=== PATIENT | female | born 1985 | race Caucasian/White ===

== ENCOUNTER 2016-11-13 10:03 | Outpatient (RCR) | payer MEDICAID | END 2016-12-04 | LOC: M OUTALCOH 10:03 | PROVIDERS: ATTEND Psychiatry & Neurology Psychiatry | DX: F11.20 Opioid dependence, uncomplicated (principal); F15.20 Other stimulant dependence, uncomplicated ==

== ENCOUNTER → 2017-02-12 | Outpatient (CLI) | payer MEDICAID | LOC: M OUTALCOH 09:05 | PROVIDERS: ATTEND Psychiatry & Neurology Psychiatry | DX: F11.20 Opioid dependence, uncomplicated (principal); F15.20 Other stimulant dependence, uncomplicated; F14.20 Cocaine dependence, uncomplicated ==

== ENCOUNTER 2017-09-26 11:35 | Emergency (ER) | payer MEDICAID, OTHER ==
[~2017-09-26] VITALS: Ht 175.3 cm; Wt 61.4 kg
[2017-09-26] MEDS ORDERED: PRENTAB55 PO (11:39)
[2017-09-26 12:18] LABS: BASO # 0.1 10^3/uL (0.0-0.2); BASO % 0.5 % (0.0-1.0); EOS # 0.1 10^3/uL (0.0-0.50); EOS % 0.8 % (0.0-3.0); IMMATURE GRANULOCYTE % 0.3 % (0-0); LYMPH # 2.9 10^3/uL (1.5-4.5); LYMPH % 23.2 % (24.0-44.0); MEAN CORPUSCULAR HEMOGLOBIN 31.9 pg (27.0-33.0); MEAN CORPUSCULAR HGB CONC 34.3 g/dl (32.0-36.5); MONO # 0.8 10^3/uL (0.0-0.8); MONO % 6.1 % (0.0-5.0); NEUTROPHILS # 8.5 10^3/uL (1.8-7.7); NEUTROPHILS % 69.1 % (36.0-66.0); PLATELET COUNT, AUTOMATED 246 10^3/uL (150-450); RED CELL DISTRIBUTION WIDTH 12.1 % (11.5-14.5); WHITE BLOOD COUNT 12.3 10^3/uL (4.0-10.0)
--- NOTE | 2017-09-26 13:21 | REP ---
Clinical: Vaginal bleeding. Positive . Technique: Transabdominal and transvaginal first trimester obstetrical ultrasound with color Doppler evaluation. Findings: Anteverted uterus measures 8.7 x 4.7 x 5.6 cm. Hemorrhagic debris distends the endometrial canal to 12 mm and no intrauterine is identified. Maternal ovaries are normal in appearance and vascularity. Right ovary measures 4.0 x 2.2 x 3.0 cm; RI 0.46. Left ovary measures 1.9 x 1.9 x 1.6 cm; RI 0.59. Trace pelvic free fluid is nonspecific. Impression: Hemorrhagic debris within the endometrial canal and no evidence for intrauterine . Differential diagnosis includes miscarriage/spontaneous and early . Ectopic cannot be excluded. Correlation with serial HCG levels recommended. Signed by Steffen Puckett MD 09/26/2017 01:12 P
[2017-09-26] MEDS ORDERED: RHOGAM 300 MCG (1500 IU) INJ (J2790) IM SCH (13:45)
[2017-09-26 14:47] VITALS: BP 136/85
== END 2017-09-26 14:51 | disposition home or self-care (01) ==
LOC: M ED 11:35
DX: O03.4 Incomplete spontaneous abortion without complication (principal)
CPT/HCPCS: 76801; 76817; 81001; 84702; 85025; 86850; 86900; 86901; 87210; 87491; 87591; 93976; 96372; 99283; J2790

== ENCOUNTER 2019-01-12 16:11 | Emergency (ER) | payer MEDICAID, OTHER, SELFPAY ==
[~2019-01-12] VITALS: Ht 172.7 cm; Wt 65.9 kg
[2019-01-12 16:11] VITALS: BP 127/58
[~2019-01-12 16:11] MED LIST: PRENTAB55 PO
[2019-01-12 20:03] LABS: BASO % 0.4 % (0.0-1.0); BLOOD UREA NITROGEN 8 MG/DL (7-18); CALCIUM LEVEL 7.4 MG/DL (8.5-10.1); CARBON DIOXIDE LEVEL 24 MEQ/L (21-32); CHLORIDE LEVEL 107 MEQ/L (98-107); CREATININE FOR GFR 0.53 MG/DL (0.55-1.30); EOS # 0.1 10^3/uL (0.0-0.50); EOS % 1.4 % (0.0-3.0); GLOMERULAR FILTRATION RATE > 60.0 (>60); GLUCOSE, FASTING 114 MG/DL (70-100); HEMATOCRIT 32.3 % (36.0-47.0); HEMOGLOBIN 11.5 g/dl (12.0-15.5); LYMPH # 1.5 10^3/uL (1.5-4.5); LYMPH % 21.5 % (24.0-44.0); MEAN CORPUSCULAR HEMOGLOBIN 33.9 pg (27.0-33.0); MEAN CORPUSCULAR HGB CONC 35.6 g/dl (32.0-36.5); MEAN CORPUSCULAR VOLUME 95.3 fl (80.0-96.0); MONO # 0.5 10^3/uL (0.0-0.8); MONO % 7.3 % (0.0-5.0); NEUTROPHILS # 4.9 10^3/uL (1.8-7.7); PLATELET COUNT, AUTOMATED 290 10^3/uL (150-450); RED BLOOD COUNT 3.39 10^6/uL (4.00-5.40); SODIUM LEVEL 139 MEQ/L (136-145); WHITE BLOOD COUNT 7.1 10^3/uL (4.0-10.0)
[2019-01-12 20:07] LABS: AMPHETAMINES LEVEL URINE NEGATIVE (NEGATIVE); BARBITURATES URINE NEGATIVE (NEGATIVE); BENZODIAZEPINES URINE NEGATIVE (NEGATIVE); CANNABINOIDS URINE NEGATIVE (NEGATIVE); COCAINE METABOLITE URINE POSITIVE (NEGATIVE); METHADONE URINE NEGATIVE (NEGATIVE); OPIATES URINE POSITIVE (NEGATIVE); PHENCYCLIDINE URINE NEGATIVE (NEGATIVE)
[2019-01-12] MEDS ORDERED: KEFL500C17 PO (22:43)
--- NOTE | 2019-01-13 09:45 | REP ---
Obstetric ultrasound for vaginal bleeding, emergency room request: There is a single intrauterine gestation in a vertex presentation. There is movement and cardiac activity. The heart rate is 155 beats minute. The placenta is anterior without previa or abruptio and is grade zero maturity. Subjectively the amniotic fluid volume is normal. The cervix is 3.9 cm length. Gestational age by today's ultrasound is 21 weeks 5 days/LAWANDA 05/20/2019. Gestational age by LMP is 21 weeks 5 days/LAWANDA 05/20/2019. weight is for and 20 grams/0 pounds, 14 ounces. This is the 36th percentile for 21 weeks 5 days. The following anatomic structures are identified and are unremarkable: Intracranial lateral ventricles, choroid plexus, cerebellum, as cisterna magna, facial profile, upper lip, face, lungs, four-chamber heart, cardiac right and left ventricular outflow tracts, diaphragm, stomach, cord insertion, three-vessel cord, kidneys, bladder, spine and upper lower extremities. There are no anomalies. Impression: No anomalies. No placental abruptio. Normal anatomy. Electronically Signed by Hubert Christie MD 01/13/2019 09:37 A
== END 2019-01-12 23:00 | disposition home or self-care (01) ==
LOC: M ED 16:11
DX: O99.322 Drug use complicating pregnancy, second trimester (principal); F19.10 Other psychoactive substance abuse, uncomplicated; O23.42 Unspecified infection of urinary tract in pregnancy, second trimester; O09.32 Supervision of pregnancy with insufficient antenatal care, second trimester; Z3A.21 21 weeks gestation of pregnancy; Z87.440 Personal history of urinary (tract) infections

== ENCOUNTER → 2019-01-16 | Outpatient (REF) | payer OTHER ==
[~2019-01-16] MED LIST changes: +KEFL500C17 PO
[2019-01-16 14:12] LABS: HEMATOCRIT 34.9 % (36.0-47.0); HEMOGLOBIN 12.3 g/dl (12.0-15.5); MEAN CORPUSCULAR HEMOGLOBIN 32.9 pg (27.0-33.0); MEAN CORPUSCULAR HGB CONC 35.2 g/dl (32.0-36.5); MEAN CORPUSCULAR VOLUME 93.3 fl (80.0-96.0); PLATELET COUNT, AUTOMATED 316 10^3/uL (150-450); RED BLOOD COUNT 3.74 10^6/uL (4.00-5.40); WHITE BLOOD COUNT 14.2 10^3/uL (4.0-10.0)
[2019-01-16 15:05] LABS: HIV 1&2 SCREEN CENTAUR NEGATIVE (NEGATIVE); RUBELLA IgG QUALITATIVE IMMUNE (IMMUNE)
== END ==
LOC: M LAB REF 12:34
PROVIDERS: ATTEND Nurse Practitioner Women's Health
DX: Z34.82 Encounter for supervision of other normal pregnancy, second trimester (principal); Z36.89 Encounter for other specified antenatal screening

== ENCOUNTER → 2019-01-27 | Outpatient (REF) | payer OTHER | LOC: M LAB REF 17:13 | PROVIDERS: ATTEND Nurse Practitioner Women's Health | DX: Z34.82 Encounter for supervision of other normal pregnancy, second trimester (principal); Z3A.00 Weeks of gestation of pregnancy not specified ==

== ENCOUNTER → 2019-02-11 | Outpatient (CLI) | payer MEDICAID | LOC: M OUTALCOH 15:30 | PROVIDERS: ATTEND Psychiatry & Neurology Psychiatry | DX: Z13.9 Encounter for screening, unspecified (principal) ==

== ENCOUNTER → 2019-02-17 | Outpatient (CLI) | payer OTHER ==
[2019-02-17 13:48] LABS: HEMATOCRIT 37.2 % (36.0-47.0); HEMOGLOBIN 12.8 g/dl (12.0-15.5); MEAN CORPUSCULAR HEMOGLOBIN 33.4 pg (27.0-33.0); MEAN CORPUSCULAR HGB CONC 34.4 g/dl (32.0-36.5); MEAN CORPUSCULAR VOLUME 97.1 fl (80.0-96.0); PLATELET COUNT, AUTOMATED 239 10^3/uL (150-450); RED BLOOD COUNT 3.83 10^6/uL (4.00-5.40); WHITE BLOOD COUNT 9.9 10^3/uL (4.0-10.0)
== END ==
LOC: M LAB 11:26
PROVIDERS: ATTEND Obstetrics & Gynecology
DX: Z34.83 Encounter for supervision of other normal pregnancy, third trimester (principal); Z3A.00 Weeks of gestation of pregnancy not specified

== ENCOUNTER 2019-03-02 14:41 | Outpatient (RCR) | payer MEDICAID | END 2019-03-03 | LOC: M OUTALCOH 14:41 | PROVIDERS: ATTEND Psychiatry & Neurology Psychiatry | DX: F11.20 Opioid dependence, uncomplicated (principal); F14.10 Cocaine abuse, uncomplicated ==

== ENCOUNTER 2019-03-13 08:47 | Outpatient (CLI) | payer MEDICAID, OTHER ==
[~2019-03-13] VITALS: Ht 172.7 cm; Wt 73.0 kg
[2019-03-13] VITALS (7 sets, daily range): BP systolic 130–141; BP diastolic 60–83
--- NOTE | 2019-03-13 09:50 | IPNPDOC ---
Text Note Date of Service The patient was seen on 03/13/19. NOTE 33yo LAWANDA 05/18/19. Pt of [facility]. Presents @ 30w5d with complaints of bleeding while on wipe. Denies regular UC, LOF. States good activity. Denies recent IC. Pt reports hx LEEP without TVUS this . Hx significant for recent drug use. Currently on suboxone x 1-2 weeks. UDS 01/12/19 + cocaine. Pt reports using hydrocodone as recently as last week. Cat I tracing, no UC on monitor SSE cervix visually LTC, parous. No blood in vault or on swab with touch Sono ordered to r/o abruption, cervical length Coag labs ordered UDS discussed with pt and sent. Reevaluate after results. A-FIB/CHADSVASC A-FIB History Current/History of A-Fib/PAF?: No Current Oral Anticoagulant The: No VS,Fishbone, I+O VS, Fishbone, I+O Vital Signs Date Time Temp Pulse Resp B/P (MAP) Pulse Ox O2 Delivery O2 Flow Rate FiO2 03/13/19 08:58 93 20 136/83 (100) Haley Liang CNM March 13, 2019 09:50
[2019-03-13 09:58] LABS: APPEARANCE, URINE CLEAR (CLEAR); BACTERIA, URINE AUTO 1+ (NEGATIVE); BILIRUBIN, URINE AUTO NEGATIVE (NEGATIVE); BLOOD, URINE BLOOD 1+ (NEGATIVE); COLOR, URINE STRAW (YELLOW); GLUCOSE, URINE (UA) AUTO NEGATIVE (NEGATIVE); KETONE, URINE AUTO NEGATIVE (NEGATIVE); LEUKOCYTE ESTERASE, URINE AUTO NEGATIVE (NEGATIVE); NITRITE, URINE AUTO NEGATIVE (NEGATIVE); PROTEIN, URINE AUTO NEGATIVE (NEGATIVE); RBC, URINE AUTO 0 /HPF (0-3); SPECIFIC GRAVITY URINE AUTO 1.002 (1.002-1.035); SQUAMOUS EPITHELIAL CELL UR AU 0 /HPF (0-6); UROBILINOGEN, URINE AUTO 0.2 mg/dL (0.0-2.0); WBC, URINE AUTO 1 /HPF (0-3)
[2019-03-13 10:02] LABS: HEMATOCRIT 36.7 % (36.0-47.0); HEMOGLOBIN 12.7 g/dl (12.0-15.5); MEAN CORPUSCULAR HEMOGLOBIN 32.5 pg (27.0-33.0); MEAN CORPUSCULAR HGB CONC 34.6 g/dl (32.0-36.5); MEAN CORPUSCULAR VOLUME 93.9 fl (80.0-96.0); PLATELET COUNT, AUTOMATED 244 10^3/uL (150-450); RED BLOOD COUNT 3.91 10^6/uL (4.00-5.40); WHITE BLOOD COUNT 10.2 10^3/uL (4.0-10.0)
[2019-03-13 10:13] LABS: INR 0.83; PROTHROMBIN TIME 11.5 SECONDS (12.1-14.4)
[2019-03-13 10:14] LABS: PARTIAL THROMBOPLASTIN TIME 25.2 SECONDS (25.4-37.6)
[2019-03-13 10:15] LABS: AMPHETAMINES URINE REFLEX NEGATIVE (NEGATIVE); BARBITURATES URINE REFLEX NEGATIVE (NEGATIVE); BENZODIAZEPINES URINE REFLEX NEGATIVE (NEGATIVE); CANNABINOIDS URINE REFLEX NEGATIVE (NEGATIVE); COCAINE METABOLITE URINE REFLE NEGATIVE (NEGATIVE); METHADONE URINE REFLEX NEGATIVE (NEGATIVE); OPIATES URINE REFLEX NEGATIVE (NEGATIVE); PHENCYCLIDINE URINE REFLEX NEGATIVE (NEGATIVE)
--- NOTE | 2019-03-13 12:35 | REP ---
OB ULTRASOUND: Real-time sonographic evaluation of the gravid uterus is performed utilizing transabdominal and endovaginal technique. There is a single living intrauterine gestation. Estimated gestational age 30 weeks 2 days, EDC 05/20/2019. Today's measurements indicate appropriate growth. BPD 82 mm = 32 weeks 6 days, 87th percentile HC 296 mm = 32 weeks 5 days, 86th percentile AC 273 mm = 31 weeks 3 days, 66th percentile Femur length 54 mm = 28 weeks 4 days, 14th percentile HC/AC ratio 1.08 within normal range. Estimated weight 1638 grams, 52nd percentile. Cervix measured transvaginally measures 4.1 cm in length. heart rate 149 beats per minute. Amniotic fluid within normal limits, LEANNA 15.3 within normal range of 8.9-23.5. S/D ratio 2.57 and RI 0.61 within normal range. SEEN/GROSSLY UNREMARKABLE Lateral ventricles No Posterior fossa Yes Upper lip No Four-chamber heart Yes LVOT Yes RVOT Yes Stomach Yes Cord insertion Yes Three vessel cord Yes Kidneys Yes Bladder Yes Spine Yes position: Vertex. Placenta: Anterior and grade 1 with no previa or abruption. Electronically Signed by Hubert Lee MD 03/18/2019 11:40 A
--- NOTE | 2019-03-13 12:41 | IPNPDOC ---
Text Note Date of Service The patient was seen on 03/13/19. NOTE CAt 1 tracing continues No UC TVUS shows cervix 4.1cm, closed No evidence previa or abruption Coags WNL, KB 0.000 Will obtain preeclamptic panel prior to discharge due to borderline readings Keep appt on saturday. A-FIB/CHADSVASC A-FIB History Current/History of A-Fib/PAF?: No Current Oral Anticoagulant The: No VS,Fishbone, I+O VS, Fishbone, I+O Laboratory Tests 03/13/19 09:50 Red Blood Count 3.91 L, Mean Corpuscular Volume 93.9, Mean Corpuscular Hemoglobin 32.5, Mean Corpuscular Hemoglobin Concent 34.6, Red Cell Distribution Width 12.2 Vital Signs Date Time Temp Pulse Resp B/P (MAP) Pulse Ox O2 Delivery O2 Flow Rate FiO2 03/13/19 11:32 88 18 139/75 (96) 03/13/19 09:12 97.6 Haley Liang CNM March 13, 2019 12:41
[2019-03-13 13:38] LABS: CREATININE,RANDOM URINE < 13.0 MG/DL; TOTAL PROTEIN,RANDOM URINE < 5.0 MG/DL (0.0-12.0)
[2019-03-13 14:21] LABS: ALT/SGPT 16 U/L (12-78); BILIRUBIN,TOTAL 0.2 MG/DL (0.2-1.0); CREATININE FOR GFR 0.49 MG/DL (0.55-1.30); GLOMERULAR FILTRATION RATE > 60.0 (>60); LDH LACTATE DEHYDROGENASE 223 U/L (84-246); URIC ACID 4.3 MG/DL (2.6-6.0)
--- NOTE | 2019-03-13 16:02 | IPNPDOC ---
Text Note Date of Service The patient was seen on 03/13/19. NOTE Second speculum exam performed after pt demonstrated pink tinted toilet paper after voiding. No blood in vault or on swab. Cat I tracing, no UC Renal scan WNL Will consult physician for further recommendations. A-FIB/CHADSVASC A-FIB History Current/History of A-Fib/PAF?: No Current Oral Anticoagulant The: No VS,Fishbone, I+O VS, Fishbone, I+O Laboratory Tests 03/13/19 09:50 Red Blood Count 3.91 L, Mean Corpuscular Volume 93.9, Mean Corpuscular Hemoglobin 32.5, Mean Corpuscular Hemoglobin Concent 34.6, Red Cell Distribution Width 12.2 03/13/19 13:31 Aspartate Amino Transf (AST/SGOT) 20, Alanine Aminotransferase (ALT/SGPT) 16, Lactate Dehydrogenase 223, Total Bilirubin 0.2, Uric Acid 4.3 Vital Signs Date Time Temp Pulse Resp B/P (MAP) Pulse Ox O2 Delivery O2 Flow Rate FiO2 03/13/19 14:55 88 18 133/65 (87) 03/13/19 09:12 97.6 Haley Liang CNM March 13, 2019 16:02
--- NOTE | 2019-03-13 16:30 | REP ---
HISTORY: Hematuria. COMPARISON: There are no priors for comparison. FINDINGS: Multiple ultrasonographic images of the right kidney show the right kidney to measure 13.6 x 6.5 x 5.6 cm. The renal cortical echotexture is unremarkable. There are no masses. There is good corticomedullary differentiation. There is no hydronephrosis. There are no perinephric fluid collections. Multiple ultrasonographic images of the left kidney show the left kidney to measure 13.4 x 5.4 x 5.9 cm. The renal cortical echotexture is unremarkable. There are no masses. There is good corticomedullary differentiation. There is no hydronephrosis. There are no perinephric fluid collections. 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 IMPRESSION: Unremarkable renal ultrasonography. Electronically Signed by Erwin Mcgrath DO 03/19/2019 02:36 P
--- NOTE | 2019-03-13 19:11 | IPNPDOC ---
Text Note Date of Service The patient was seen on 03/13/19. NOTE Reviewed labs, sonogram, pt status with Dr Vernon Pt verbalized concerns about discharge tonight and "it getting worse." Will continue to observe overnight and reevaluate in the morning and prn. Pt verbalized reassurance. A-FIB/CHADSVASC A-FIB History Current/History of A-Fib/PAF?: No Current Oral Anticoagulant The: No VS,Fishbone, I+O VS, Fishbone, I+O Laboratory Tests 03/13/19 09:50 Red Blood Count 3.91 L, Mean Corpuscular Volume 93.9, Mean Corpuscular Hemog lobin 32.5, Mean Corpuscular Hemoglobin Concent 34.6, Red Cell Distribution Width 12.2 03/13/19 13:31 Aspartate Amino Transf (AST/SGOT) 20, Alanine Aminotransferase (ALT/SGPT) 16, Lactate Dehydrogenase 223, Total Bilirubin 0.2, Uric Acid 4.3 Vital Signs Date Time Temp Pulse Resp B/P (MAP) Pulse Ox O2 Delivery O2 Flow Rate FiO2 03/13/19 14:55 88 18 133/65 (87) 03/13/19 09:12 97.6 Haley Liang CNM March 13, 2019 19:11
[2019-03-14 01:15] VITALS: BP 116/68
[2019-03-14 06:42] VITALS: BP 132/79
--- NOTE | 2019-03-14 07:56 | IPNPDOC ---
Text Note Date of Service The patient was seen on 03/14/19. NOTE Pt has slept through the night. Denies further spotting or bleeding No abdominal discomfort or contractions Fetus is active Discharged home. Routine precautions If bleeding becomes heavier than on a wipe or passing clots of pain, please call Keep appt with Reyna on Saturday. A-FIB/CHADSVASC A-FIB History Current/History of A-Fib/PAF?: No Current Oral Anticoagulant The: No VS,Fishbone, I+O VS, Fishbone, I+O Laboratory Tests 03/13/19 09:50 Red Blood Count 3.91 L, Mean Corpuscular Volume 93.9, Mean Corpuscular Hemoglobin 32.5, Mean Corpuscular Hemoglobin Concent 34.6, Red Cell Distribution Width 12.2 03/13/19 13:31 Aspartate Amino Transf (AST/SGOT) 20, Alanine Aminotransferase (ALT/SGPT) 16, Lactate Dehydrogenase 223, Total Bilirubin 0.2, Uric Acid 4.3 Vital Signs Date Time Temp Pulse Resp B/P (MAP) Pulse Ox O2 Delivery O2 Flow Rate FiO2 03/14/19 06:42 97.9 77 132/79 (96) 03/13/19 14:55 18 Haley Liang CNM March 14, 2019 07:56
== END 2019-03-14 08:00 | disposition home or self-care (01) ==
LOC: M LDO 08:47
PROVIDERS: ATTEND Advanced Practice Midwife
DX: O26.853 Spotting complicating pregnancy, third trimester (principal); Z3A.30 30 weeks gestation of pregnancy

== ENCOUNTER 2019-04-01 07:55 | Outpatient (RCR) | payer MEDICAID | END 2019-04-03 | LOC: M OUTALCOH 07:55 | PROVIDERS: ATTEND Psychiatry & Neurology Psychiatry | DX: F11.20 Opioid dependence, uncomplicated (principal); F14.10 Cocaine abuse, uncomplicated ==

== ENCOUNTER → 2019-04-14 | Outpatient (REF) | payer MEDICAID | LOC: M LAB REF 12:22 | PROVIDERS: ATTEND Nurse Practitioner Women's Health | DX: O09.93 Supervision of high risk pregnancy, unspecified, third trimester (principal); Z3A.00 Weeks of gestation of pregnancy not specified; F11.19 Opioid abuse with unspecified opioid-induced disorder ==

== ENCOUNTER → 2019-04-21 | Outpatient (REF) | payer MEDICAID ==
[~2019-04-21] MED LIST changes: +SUBO8MIS SL
== END ==
LOC: M LAB REF 16:47
PROVIDERS: ATTEND Nurse Practitioner Women's Health
DX: O09.93 Supervision of high risk pregnancy, unspecified, third trimester (principal)

== ENCOUNTER 2019-04-24 08:11 | Outpatient (CLI) | payer MEDICAID, OTHER ==
[~2019-04-24] VITALS: Ht 172.7 cm; Wt 79.7 kg
[~2019-04-24 08:11] MED LIST changes: -SUBO8MIS SL
[2019-04-24 08:31] VITALS: BP 130/71
[2019-04-24] MEDS ORDERED: SUBO8MIS SL (08:59)
== END 2019-04-24 09:15 | disposition home or self-care (01) ==
LOC: M LDO 08:11
PROVIDERS: ATTEND Obstetrics & Gynecology
DX: O47.1 False labor at or after 37 completed weeks of gestation (principal); Z3A.37 37 weeks gestation of pregnancy

== ENCOUNTER → 2019-04-28 | Outpatient (REF) | payer OTHER ==
[~2019-04-28] MED LIST changes: +SUBO8MIS SL
== END ==
LOC: M LAB REF 17:07
PROVIDERS: ATTEND Nurse Practitioner Women's Health
DX: O99.323 Drug use complicating pregnancy, third trimester (principal); O09.93 Supervision of high risk pregnancy, unspecified, third trimester; Z3A.00 Weeks of gestation of pregnancy not specified

== ENCOUNTER 2019-05-01 08:45 | Outpatient (RCR) | payer MEDICAID | END 2019-05-03 | LOC: M OUTALCOH 08:45 | PROVIDERS: ATTEND Psychiatry & Neurology Psychiatry | DX: F11.20 Opioid dependence, uncomplicated (principal); F14.10 Cocaine abuse, uncomplicated ==

== ENCOUNTER 2019-05-08 08:45 | Outpatient (RCR) | payer MEDICAID ==
[2019-05-13] MEDS ORDERED: IBUP80TA PO (05:54)
== END 2019-06-03 ==
LOC: M OUTALCOH 08:45
PROVIDERS: ATTEND Psychiatry & Neurology Psychiatry
DX: F11.20 Opioid dependence, uncomplicated (principal); F14.10 Cocaine abuse, uncomplicated

== ENCOUNTER 2019-05-10 17:40 | Inpatient (IN) | payer MEDICAID, OTHER ==
[~2019-05-10] VITALS: Ht 172.7 cm; Wt 84.3 kg
[2019-05-10] VITALS (13 sets, daily range): BP systolic 108–143; BP diastolic 59–75
[2019-05-10] MEDS: LR 1,000 ML IV SCH (20:22)
[2019-05-10] MEDS ORDERED: PENICILLIN G POTASSIUM IV 5 MU in D5W MINI-BAG PLUS 100 ML IV STA (20:24)
[2019-05-10] MEDS ORDERED: OXYTOCIN DRIP 30 UNITS in APPROPRIATE DILUENT 1 EA IV SCH (20:30)
[2019-05-10 20:41] LABS: HEMATOCRIT 37.6 % (36.0-47.0); HEMOGLOBIN 13.2 g/dl (12.0-15.5); MEAN CORPUSCULAR HGB CONC 35.1 g/dl (32.0-36.5); PLATELET COUNT, AUTOMATED 226 10^3/uL (150-450); WHITE BLOOD COUNT 10.1 10^3/uL (4.0-10.0)
--- NOTE | 2019-05-10 21:09 | HPE ---
DATE OF ADMISSION: 05/10/2019 HISTORY: 33-year-old, 4, para 1 female at 38-6/7 weeks gestation by ultrasound with an estimated date of confinement (EDC) of 05/18/2019, presents with regular contractions every 4-5 minutes. Throughout the day the contractions increased in intensity. There is no vaginal bleeding, no leaking of fluid. The patient gets care through [facility]. COURSE: The patient's initial care was in [place], [place]. She transferred back to [place] at 26 weeks gestation, on 02/10/2019. Her early blood pressure was 110/62. The patient has a history of multidrug abuse and started on Suboxone 8 mg daily at 29 weeks. She had a positive drug screen during for opioids and cocaine. The patient had an ultrasound at 35 weeks on 04/23/2019 where there was suspicion for poor growth of both femurs and humeri. Cause of abnormal growth unknown. Overall measurements of the fetus was at 30th percentile for gestational age. OBSTETRICAL HISTORY: 1. 2003: 40 week vaginal delivery, female infant, no complications. 2. 2016: Miscarriage. 3. 2016: Miscarriage. MEDICAL HISTORY: 1. History of multidrug abuse. SURGICAL HISTORY: None. ALLERGIES: No known drug allergies. MEDICATIONS: - vitamins - Suboxone 8 mg daily PHYSICAL EXAMINATION: Blood pressure 132/71, pulse 68, afebrile. She appears mildly uncomfortable. Head and neck exam is normal. Lungs are clear. Heart: Regular rate and rhythm. Abdomen is nontender, gravid. heart tones category 1. Also on heart tones there was a 5 minute deceleration associated with a contraction down to the 70s. Sterile vaginal exam: 1-2 cm, 50%, -2, posterior, vertex, soft. Extremities: Nontender. LABORATORY DATA: Blood type O negative, Rubella immune, RPR nonreactive, hepatitis B negative, hepatitis C confirmatory testing negative. Group B streptococcus (GBS) positive. ASSESSMENT: 33-year-old, 4, para 1 female at 38-6/7 weeks gestation by ultrasound presents in early labor with concerning heart rate deceleration. PLAN: Keep for augmentation of labor. Do not want to risk sending the patient home with a possible compromise as determined by heart rate testing. Patient received group B Streptococcus (GBS) prophylaxis with penicillin.
[2019-05-10 22:41] LABS: AMPHETAMINES LEVEL URINE NEGATIVE (NEGATIVE); BARBITURATES URINE NEGATIVE (NEGATIVE); BENZODIAZEPINES URINE NEGATIVE (NEGATIVE); CANNABINOIDS URINE NEGATIVE (NEGATIVE); COCAINE METABOLITE URINE NEGATIVE (NEGATIVE); METHADONE URINE NEGATIVE (NEGATIVE); OPIATES URINE NEGATIVE (NEGATIVE); PHENCYCLIDINE URINE NEGATIVE (NEGATIVE)
[2019-05-11] VITALS (60 sets, daily range): BP systolic 96–144; BP diastolic 50–83
[2019-05-11] MEDS: PENICILLIN G POTASSIUM IV 2.5 MU in APPROPRIATE DILUENT 1 EA IV SCH ×5 (00:30→16:41)
[2019-05-11] MEDS: LR 1,000 ML IV SCH (14:47)
[2019-05-11] MEDS ORDERED: FENTANYL 2MCG/ML ROPIVACAINE 0.2% IN 0.9% NACL 100ML IVBAG As Ordered ONE (15:00)
[2019-05-11] MEDS ORDERED: REFRIGERATOR IV KEYS XX PRN (15:25)
[2019-05-11] MEDS ORDERED: EPIDURAL/PCA KEYS XX PRN (15:25)
[2019-05-11] MEDS ORDERED: ONDANSETRON 4MG/2ML VIAL (J2405) IV PRN ×3 (15:25→18:45)
[2019-05-11] MEDS ORDERED: FENTANYL/ROPIVACAINE/NACL BAG 100 ML EPIDURAL SCH (15:25)
[2019-05-11] MEDS ORDERED: ePHEDrine SULFATE 25 MG/5 ML(5MG/ML) SYRINGE IV PRN (15:25)
[2019-05-11] MEDS ORDERED: NALOXONE INJ 0.4 MG/1 ML VIAL (J2310) IV PRN (15:25)
[2019-05-11] MEDS ORDERED: diphenhydrAMINE INJ 50MG/ML VIAL (J1200) IV PRN (15:25)
[2019-05-11] MEDS ORDERED: EPIDURAL COMMENT XX SCH (15:25)
[2019-05-11] MEDS ORDERED: ceFAZolin 2 GM/D5W 50 ML IV BAG (J0690 PER 500MG) As Ordered ONE (16:59)
[2019-05-11] MEDS ORDERED: BICITRA 30ML SOLN UDC As Ordered ONE (16:59)
[2019-05-11] MEDS ORDERED: BICITRA 30ML SOLN UDC PO ONE (17:15)
[2019-05-11] MEDS ORDERED: ONDANSETRON 4MG/2ML VIAL (J2405) As Ordered ONE (18:13)
[2019-05-11] MEDS ORDERED: KETOROLAC 60 MG/2 ML VIAL (J1885) As Ordered ONE (18:13)
[2019-05-11] MEDS ORDERED: MORPHINE PRES-FREE INJ 10 MG/10 ML VIAL (J2274) As Ordered ONE (18:13)
[2019-05-11] MEDS ORDERED: OXYTOCIN INJ 10 UNITS/ML VIAL (J2590) As Ordered ONE (18:13)
[2019-05-11] MEDS ORDERED: ACETAMINOPHEN 1000MG 100ML IV BTL (OFIRMEV) (J0131 PER 10MG) As Ordered ONE ×2 (18:15→18:19)
[2019-05-11] MEDS ORDERED: OXYTOCIN DRIP 30 UNITS in APPROPRIATE DILUENT 1 EA IV SCH (18:17)
[2019-05-11 18:41] LABS: CORD GAS ABE V -2.8; CORD GAS HCO3 V 23.5 MEQ/L; CORD GAS O2 SAT V 35.9 %; CORD GAS PCO2 V 46.3 mmHg; CORD GAS PH V 7.323 UNITS; CORD GAS PO2 V 17.4 mmHg; CORD GAS SBC V 20.7 MEQ/L; CORD GAS TCO2 V 24.9 MEQ/L
[2019-05-11 18:45] LABS: CORD GAS HCO3 A 23.9 MEQ/L; CORD GAS O2 SAT A 39.7 %; CORD GAS PCO2 A 50.2 mmHg; CORD GAS PH A 7.296 UNITS; CORD GAS PO2 A 19.4 mmHg; CORD GAS SBC A 20.6 MEQ/L; CORD GAS TCO2 A 25.5 MEQ/L
[2019-05-11] MEDS ORDERED: LR 1,000 ML IV SCH (18:45)
[2019-05-11] MEDS ORDERED: fentaNYL 100 MCG/2 ML INJECTION (J3010) IV PRN (18:45)
[2019-05-11] MEDS ORDERED: MORPHINE 10 MG/ML 1ML VIAL (J2270) IV PRN (18:45)
[2019-05-11] MEDS ORDERED: NALBUPHINE HCL 10 MG/ML AMP (J2300) IV PRN (18:45)
[2019-05-11] MEDS ORDERED: RHOGAM 300 MCG (1500 IU) INJ (J2790) IM SCH (19:00)
[2019-05-11] MEDS ORDERED: MOM 30ML SUSPENSION UDC PO PRN (19:00)
[2019-05-11] MEDS ORDERED: METHYLERGONOVINE MALEATE 0.2 MG TAB PO PRN (19:00)
[2019-05-11] MEDS ORDERED: MEASLES,MUMPS,RUBELLA VACCINE INJ (MMR-II) (90707) SC SCH (19:00)
[2019-05-11] MEDS: DOCUSATE SODIUM 100 MG CAP PO SCH (21:00)
--- NOTE | 2019-05-11 22:01 | RO ---
DATE OF PROCEDURE: 05/11/2019 Ingrid is a 33-year-old female 2, para 1-0-0-1 who was admitted at 39 weeks gestation with two spontaneous decelerations, in early labor. She was augmented with Pitocin and continued to have a nonreassuring heart rate tracing, had a 4-5 minutes deceleration. She was remote from delivery. After extensive counseling, a decision was made to proceed with a primary section. PREOPERATIVE DIAGNOSES: 1. Term . 2. Nonreassuring heart rate tracing, remote from delivery. POSTOPERATIVE DIAGNOSES: 1. Term . 2. Nonreassuring heart rate tracing, remote from delivery. PROCEDURE: Primary low transverse section. SURGEON: Levy Orellana DO ASTRONOMY PROFESSOR: Sadaf Beasley CNM ANESTHESIA: Epidural. COMPLICATIONS: None. ESTIMATED BLOOD LOSS: 500 mL. FINDINGS: Live male in occiput posterior position. score 8 and 9. weight 7 pounds 7 ounces. Normal appearing tubes and ovaries. DESCRIPTION OF PROCEDURE: After obtaining informed consent, the patient was taken to the operating room where epidural anesthetic was found be adequate. She was draped and prepped in the usual sterile fashion in the supine position. At this point, a Pfannenstiel incision was made with a fresh knife. This was carried down to the fascia. Fascia was incised in midline fashion and carried through laterally. With the help of my research lab assistant, the peritoneal cavity was then entered, a Mobius skin retractor was placed, a low transverse uterine incision was made. was delivered in an atraumatic fashion. Nose and mouth bulb suctioned. Cord doubly clamped and cut, and the infant was handed over to awaiting warmer. Cord blood and cord gas were sent. Placenta removed manually. Uterus cleared of all clot and debris and uterine incision was repaired in two separate layers of #0 Vicryl sutures. All superficial bleeders were coagulated. Pelvis copiously irrigated with normal saline and suctioned out. Attention turned to the peritoneum, which was closed in a running fashion using #2-0 Vicryl. Fascia closed in two separate segments of #0 Vicryl sutures. All superficial bleeders coagulated, and the skin was reapproximated in subcuticular fashion using #3-0 Vicryl on a Dirk. An abdominal dressing was placed. The patient was then transferred to recovery room in stable condition.
[2019-05-11] MEDS: KETOROLAC 30 MG/ML VIAL (J1885) IV SCH (23:48)
[2019-05-12 02:00] VITALS: BP 115/57
[2019-05-12 06:00] VITALS: BP 119/58
[2019-05-12] MEDS: KETOROLAC 30 MG/ML VIAL (J1885) IV SCH ×2 (06:01→12:12)
[2019-05-12 06:37] LABS: HEMATOCRIT 32.4 % (36.0-47.0); HEMOGLOBIN 11.3 g/dl (12.0-15.5); MEAN CORPUSCULAR HEMOGLOBIN 33.4 pg (27.0-33.0); MEAN CORPUSCULAR HGB CONC 34.9 g/dl (32.0-36.5); MEAN CORPUSCULAR VOLUME 95.9 fl (80.0-96.0); PLATELET COUNT, AUTOMATED 176 10^3/uL (150-450); RED BLOOD COUNT 3.38 10^6/uL (4.00-5.40); WHITE BLOOD COUNT 9.6 10^3/uL (4.0-10.0)
[2019-05-12] MEDS: PRENATAL VITAMINS CHEWABLE TABLET PO SCH (09:11)
[2019-05-12] MEDS: DOCUSATE SODIUM 100 MG CAP PO SCH ×2 (09:11→20:31)
[2019-05-12] MEDS: BUPRENORPHINE/NALOXONE 8-2MG SUBLINGUAL TABLET(SUBOXONE) SL SCH (09:11)
[2019-05-12 10:00] VITALS: BP 117/60
[2019-05-12 14:07] VITALS: BP 137/66
[2019-05-12 18:00] VITALS: BP 101/53
[2019-05-12] MEDS: ACETAMINOPHEN 500 MG TAB PO PRN (18:57)
[2019-05-12] MEDS: IBUPROFEN 800 MG TAB PO SCH (20:31)
[2019-05-12 22:00] VITALS: BP 113/58
[2019-05-13 02:00] VITALS: BP 127/61
[2019-05-13] MEDS: IBUPROFEN 800 MG TAB PO SCH ×2 (03:09→11:40)
[2019-05-13] MEDS ORDERED: IBUP80TA PO (05:54)
[2019-05-13 06:00] VITALS: BP 114/60
[2019-05-13] MEDS: PRENATAL VITAMINS CHEWABLE TABLET PO SCH (08:01)
[2019-05-13] MEDS: ACETAMINOPHEN 500 MG TAB PO PRN (08:01)
[2019-05-13] MEDS: DOCUSATE SODIUM 100 MG CAP PO SCH ×2 (08:02→11:31)
[2019-05-13] MEDS: BUPRENORPHINE/NALOXONE 8-2MG SUBLINGUAL TABLET(SUBOXONE) SL SCH ×2 (08:02→11:31)
[2019-05-13 10:00] VITALS: BP 130/80
--- NOTE | 2019-05-13 14:25 | DSES ---
DATE OF ADMISSION: 05/10/2019 DATE OF DISCHARGE: 05/13/2019 FINAL DIAGNOSES: 1. Term . 2. Nonreassuring heart rate tracing remote from delivery. PROCEDURE DONE DURING THIS ADMISSION: Primary low transverse section. CONDITION ON DISCHARGE: Stable. DISCHARGE INSTRUCTIONS: The patient is instructed to call if there is any severe bleeding, pain, or temperature greater than 101. The patient was sent home on ibuprofen. She is also an ex-drug abuser on methadone and be using the methadone for pain also. BRIEF HISTORY: Ingrid is a 33-year-old female who is admitted at 39-4/7 weeks gestation after having spontaneous deceleration in early labor. She was monitored on labor and delivery. Continued to have a nonreassuring heart rate tracing. Given that she was remote from delivery, decision was made to proceed with a primary section. She underwent the above-noted procedure, was then transferred to maternity for postoperative care. Postoperatively, she did well. Remained afebrile throughout her hospital stay, and on postoperative day #2 she was discharged home in stable condition to followup in the clinic in approximately 2 weeks for an incision check.
== END 2019-05-13 13:15 | disposition home or self-care (01) | DRG 540 ==
LOC: M LDO 17:40 → M LDI 19:49 → M OBS 05-11 20:34
PROVIDERS: ADMIT Specialist; ATTEND Obstetrics & Gynecology
PROC: 10D00Z1 Extraction of Products of Conception, Low, Open Approach (ICD-10-PCS; principal; 2019-05-11 17:05)
DX: O76 Abnormality in fetal heart rate and rhythm complicating labor and delivery (principal); O99.324 Drug use complicating childbirth; Z3A.38 38 weeks gestation of pregnancy; Z37.0 Single live birth; O99.824 Streptococcus B carrier state complicating childbirth; F14.90 Cocaine use, unspecified, uncomplicated; F11.90 Opioid use, unspecified, uncomplicated

== ENCOUNTER → 2019-05-20 | Outpatient (REF) | payer OTHER ==
[~2019-05-20] MED LIST changes: +IBUP80TA PO
== END ==
LOC: M LAB REF 16:56
PROVIDERS: ATTEND Obstetrics & Gynecology
DX: R35.0 Frequency of micturition (principal)

== ENCOUNTER → 2019-07-27 | Outpatient (CLI) | payer MEDICAID, OTHER | LOC: M OUTALCOH 08:28 | PROVIDERS: ATTEND Psychiatry & Neurology Psychiatry | DX: F11.20 Opioid dependence, uncomplicated (principal) ==

== ENCOUNTER → 2019-08-03 | Outpatient (RCR) | payer MEDICAID | LOC: M OUTALCOH 15:24 | PROVIDERS: ATTEND Psychiatry & Neurology Psychiatry | DX: F11.20 Opioid dependence, uncomplicated (principal) ==

== ENCOUNTER → 2019-09-03 | Outpatient (RCR) | payer MEDICAID | LOC: M OUTALCOH 08-10 14:32 | PROVIDERS: ATTEND Psychiatry & Neurology Psychiatry | DX: F11.20 Opioid dependence, uncomplicated (principal) ==

== ENCOUNTER 2019-09-30 08:45 | Outpatient (RCR) | payer MEDICAID | END 2019-10-03 | LOC: M OUTALCOH 08:45 | PROVIDERS: ATTEND Psychiatry & Neurology Psychiatry | DX: F11.20 Opioid dependence, uncomplicated (principal) ==

== ENCOUNTER 2019-11-02 14:00 | Outpatient (RCR) | payer MEDICAID | END 2019-11-03 | LOC: M OUTALCOH 14:00 | PROVIDERS: ATTEND Psychiatry & Neurology Psychiatry | DX: F11.20 Opioid dependence, uncomplicated (principal) ==

== ENCOUNTER 2019-12-02 13:50 | Outpatient (RCR) | payer MEDICAID | END 2019-12-04 | LOC: M OUTALCOH 13:50 | PROVIDERS: ATTEND Psychiatry & Neurology Psychiatry | DX: F11.20 Opioid dependence, uncomplicated (principal) ==

== ENCOUNTER 2019-12-15 14:00 | Outpatient (RCR) | payer MEDICAID | END 2020-01-02 | LOC: M OUTALCOH 14:00 | PROVIDERS: ATTEND Psychiatry & Neurology Addiction Medicine | DX: F11.20 Opioid dependence, uncomplicated (principal) ==

== ENCOUNTER 2019-12-16 11:08 | Day surgery (SDC) | payer OTHER ==
[~2019-12-16] VITALS: Ht 172.7 cm; Wt 69.9 kg
[~2019-12-16 11:08] MED LIST changes: +LR 1,000 ML IV SCH
[2019-12-16] MEDS ORDERED: MIDAZOLAM INJ 2 MG/2 ML VIAL (J2250) As Ordered ONE (12:32)
[2019-12-16] MEDS ORDERED: fentaNYL 100 MCG/2 ML INJECTION (J3010) As Ordered ONE (12:32)
[2019-12-16] MEDS ORDERED: propofoL 200 MG/20 ML VIAL As Ordered ONE ×2 (12:32→13:23)
[2019-12-16] MEDS ORDERED: ceFAZolin 2 GM/D5W 50 ML IV BAG (J0690 PER 500MG) As Ordered ONE (12:52)
[2019-12-16] MEDS ORDERED: ceFAZolin SOD 2 GM in IV 1 EA IV ONE (13:00)
[2019-12-16] MEDS ORDERED: LIDOCAINE 2% INJ 100 MG/5 ML SDV (FOR ANES.) As Ordered ONE (13:09)
[2019-12-16] MEDS ORDERED: BUPIVACAINE/EPIN 0.25% 30 ML VIAL As Ordered ONE (13:09)
--- NOTE | 2019-12-16 14:07 | RO ---
DATE OF PROCEDURE: 12/16/2019 PREOPERATIVE DIAGNOSIS: Left wrist dorsal ganglion cyst. POSTOPERATIVE DIAGNOSIS: Left wrist dorsal ganglion cyst. PROCEDURE: Excision left wrist dorsal ganglion cyst. SURGEON: Michael Robison MD [employer]ING [employer]NSH[employer]: Dr. Nicole and Meli Pérez NP ANESTHESIA: MAC and local. CLINICAL PREAMBLE: This 33-year-old female has a left dorsal wrist ganglion cyst. We talked about pros, cons, risks, benefits of nonsurgical management versus surgical excision. She wished to go ahead with surgery. I reiterated the risks in preoperative holding, marked the left hand and proceeded to surgery. She had no further questions. DESCRIPTION OF PROCEDURE: The patient brought to the operating theater and administered sedation. 2 grams IV Ancef was administered. Hand table was used for the patient's left side. 18 inch tourniquet was applied. SCDs were used and all bony prominences appropriately padded. Table was turned 90 degrees. Limb was prepped draped in the usual sterile fashion allowing over 3 minutes prep solution drying time before draping. Preop time-out was performed confirming the site, side, patient and surgery. Limb was elevated, sterile Esmarch used to exsanguinate the limb. The tourniquet was inflated to 250 mmHg. Longitudinal 1 inch incision was made centered over the dorsum of hand overlying the dorsal hand ganglion cyst. I carried the incision down through subcutaneous tissue, achieving meticulous hemostasis. As I protected the skin, nerves and extensor tendon, I excised the ganglion cyst tissue along with the stalk. I sent this for pathology in a sterile specimen container. It was approximately 1 inch long x 1/2 inch in diameter, oval shaped cyst. Tourniquet was taken down. The wound was thoroughly irrigated with normal saline. Bleeding was meticulously controlled. Subcutaneous tissues closed with interrupted 2-0 Vicryl sutures and skin with horizontal mattress 3-0 Ethilon sutures. Skin was cleaned and dressed with a dry dressing followed by the application of a sterile bandage. The patient was woken up from her anesthetic, transferred off the operating table and taken to postanesthetic care unit in stable condition. All sponge, needle, and instrument counts were correct. No complications. Estimated blood loss 6 mL. PLAN: The patient will start range of motion and change bandage in 2 days. Followup in the office in 2 weeks' time to discontinue the sutures.
[2019-12-16 14:40] VITALS: BP 114/61
== END 2019-12-16 15:18 | disposition home or self-care (01) ==
LOC: M SDC 11:08
PROVIDERS: ATTEND Orthopaedic Surgery Sports Medicine
DX: M67.432 Ganglion, left wrist (principal); F41.9 Anxiety disorder, unspecified; Z79.899 Other long term (current) drug therapy; Z79.891 Long term (current) use of opiate analgesic
CPT/HCPCS: 25111; 81025; 88304; J0690; J2250

== ENCOUNTER → 2021-03-16 | Outpatient (REF) | payer OTHER, MEDICAID ==
[~2021-03-16] MED LIST changes: -LR 1,000 ML IV SCH
[2021-03-16 17:25] LABS: HEMOGLOBIN 12.3 g/dl (12.0-15.5); MEAN CORPUSCULAR HEMOGLOBIN 29.9 pg (27.0-33.0); MEAN CORPUSCULAR HGB CONC 32.4 g/dl (32.0-36.5); MEAN CORPUSCULAR VOLUME 92.2 fl (80.0-96.0); PLATELET COUNT, AUTOMATED 224 10^3/uL (150-450); RED BLOOD COUNT 4.12 10^6/uL (4.00-5.40); WHITE BLOOD COUNT 6.8 10^3/uL (4.0-10.0)
[2021-03-16 18:53] LABS: HCG, SERUM QUANTITATIVE 8867 MIU/ML; HEPATITIS B SURFACE ANTIGEN NEGATIVE (NEGATIVE); HEPATITIS C VIRUS ABY INDEX < 0.0 INDEX (<0.8); HIV 1&2 SCREEN CENTAUR NEGATIVE (NEGATIVE)
== END ==
LOC: M LAB REF 16:06
PROVIDERS: ATTEND Obstetrics & Gynecology
DX: O36.80X0 Pregnancy with inconclusive fetal viability, not applicable or unspecified (principal); Z32.01 Encounter for pregnancy test, result positive

== ENCOUNTER → 2021-04-11 | Outpatient (REF) | payer OTHER, MEDICAID | LOC: M LAB REF 16:42 | PROVIDERS: ATTEND Obstetrics & Gynecology | DX: Z34.81 Encounter for supervision of other normal pregnancy, first trimester (principal); Z36.89 Encounter for other specified antenatal screening ==

== ENCOUNTER → 2021-04-25 | Outpatient (REF) | payer OTHER, MEDICAID | LOC: M LAB REF 16:25 | PROVIDERS: ATTEND Advanced Practice Midwife | DX: R30.0 Dysuria (principal) ==

== ENCOUNTER → 2021-04-28 | Outpatient (REF) | payer OTHER, MEDICAID | LOC: M WUC 11:07 | PROVIDERS: ATTEND Physician Assistant | DX: J02.9 Acute pharyngitis, unspecified (principal) ==

== ENCOUNTER → 2021-08-22 | Outpatient (CLI) | payer OTHER ==
[2021-08-22 13:29] LABS: HEMATOCRIT 35.9 % (36.0-47.0); HEMOGLOBIN 12.6 g/dl (12.0-15.5); MEAN CORPUSCULAR HEMOGLOBIN 32.5 pg (27.0-33.0); MEAN CORPUSCULAR HGB CONC 35.1 g/dl (32.0-36.5); MEAN CORPUSCULAR VOLUME 92.5 fl (80.0-96.0); PLATELET COUNT, AUTOMATED 264 10^3/uL (150-450); RED BLOOD COUNT 3.88 10^6/uL (4.00-5.40); WHITE BLOOD COUNT 8.1 10^3/uL (4.0-10.0)
== END ==
LOC: M LAB 11:15
PROVIDERS: ATTEND Obstetrics & Gynecology
DX: Z34.82 Encounter for supervision of other normal pregnancy, second trimester (principal); Z3A.00 Weeks of gestation of pregnancy not specified
CPT/HCPCS: 36415; 82950; 85027; 86850; 86901; J2790

== ENCOUNTER 2021-09-11 16:53 | Outpatient (CLI) | payer OTHER ==
[~2021-09-11] VITALS: Ht 172.7 cm; Wt 79.3 kg
[2021-09-11 17:12] VITALS: BP 171/79
[2021-09-11 17:22] VITALS: BP 168/66
[2021-09-11] MEDS ORDERED: HOME MED LIST COMPLETE! XX SCH (17:25)
[2021-09-11 17:39] VITALS: BP 121/59
[2021-09-11 17:42] VITALS: BP 126/60
[2021-09-11 18:02] LABS: APPEARANCE, URINE HAZY (CLEAR); BACTERIA, URINE AUTO 1+ (NEGATIVE); BILIRUBIN, URINE AUTO NEGATIVE (NEGATIVE); BLOOD, URINE BLOOD 1+ (NEGATIVE); COLOR, URINE YELLOW (YELLOW); GLUCOSE, URINE (UA) AUTO NEGATIVE (NEGATIVE); KETONE, URINE AUTO NEGATIVE (NEGATIVE); LEUKOCYTE ESTERASE, URINE AUTO TRACE (NEGATIVE); MUCUS, URINE MODERATE (NEGATIVE); NITRITE, URINE AUTO NEGATIVE (NEGATIVE); PROTEIN, URINE AUTO 1+ mg/dL (NEGATIVE); RBC, URINE AUTO 3 /HPF (0-3); SPECIFIC GRAVITY URINE AUTO 1.028 (1.002-1.035); SQUAMOUS EPITHELIAL CELL UR AU 3 /HPF (0-6); WBC, URINE AUTO 11 /HPF (0-3)
[2021-09-11 18:18] LABS: AMPHETAMINES URINE REFLEX NEGATIVE (NEGATIVE); BARBITURATES URINE REFLEX NEGATIVE (NEGATIVE); BENZODIAZEPINES URINE REFLEX NEGATIVE (NEGATIVE); CANNABINOIDS URINE REFLEX NEGATIVE (NEGATIVE); COCAINE METABOLITE URINE REFLE NEGATIVE (NEGATIVE); METHADONE URINE REFLEX NEGATIVE (NEGATIVE); OPIATES URINE REFLEX NEGATIVE (NEGATIVE); PHENCYCLIDINE URINE REFLEX NEGATIVE (NEGATIVE)
[2021-09-11 18:24] VITALS: BP 144/67
--- NOTE | 2021-09-11 19:11 | IPNPDOC ---
Text Note Date of Service The patient was seen on 09/11/21. NOTE S: Ingrid is a 35 year-old female who is a at 31 1/ weeks gestation with an LAWANDA of 11/12/2021 as confirmed by first trimester ultrasound. She presents to labor and delivery with complaints of vaginal bleeding for the past three days. Her care was initiated at [facility] and her has been complicated by a history of drug abuse managed with Suboxone use and prior section. Ingrid states she has noted vaginal bleeding for past three days with increase in amount this afternoon. She was seen at her OB office today and was cleared. She denies any vaginal odor or itching, pelvic pain, or uterine contractions. Reports baby has been very active. Plate Preparer history: History of HPV OB history: 1. 05/31/04 40 weeks, 8# 6 oz, female, , epidural 2. 2016 1st trimester miscarraige 3. 2016 1st trimester miscarraige 4. 05/11/19 39 1/7, 7# 4 oz, male, LTCS, drug abuse, arrest of dilation 5. Current Medical history: history of drug addiction, currently managed with suboxone Surgical history: section Family history: father , IDDM Social history: single, history of drug abuse, denies tobacco use, admits to caffeine use (2/day) O: VS-see below General: alert and oriented x 3 Respiratory: breathing comfortably on room air, no use of accessory muscles Abdomen: gravid, nontender to palpation, neg for CVAT SSE: cervix is visually closed, no abnormal vaginal discharge, no evidence of bleeding in vagina or from the cervix. No evidence of bleeding from urethra or rectum. Wet prep is negative for clue, hyphae, or trichomoniasis. SVE: negative for cervical motion tenderness, cervix is closed and thick. FHR: 140, reactive monitoring. [place]: no uterine contractions noted. A: IUP at 31 7, vaginal bleeding of unknown origin P: Ultrasound ordered, results below, reviewed with patient. Third trimester precautions reviewed with patient. Follow-up with routine OB care. Discharged to home with precautions. Reviewed kick counts, labor signs and danger signs to report. VS,Fishbone, I+O VS, Fishbone, I+O Vital Signs Date Time Temp Pulse Resp B/P (MAP) Pulse Ox O2 Delivery O2 Flow Rate FiO2 09/11/21 17:12 98.3 80 20 171/79 (109) 98 Room Air Item Value Date Time Urine Color YELLOW 09/11/21 1736 Urine Appearance HAZY 09/11/21 1736 Urine pH 6.0 UNITS 09/11/21 1736 Urine Specific [place] 1.028 09/11/21 1736 Urine Protein 1+ mg/dL H 09/11/21 1736 Urine Glucose (Auto)(UA) NEGATIVE mg/dL 09/11/21 1736 Urine Ketones (Auto) NEGATIVE mg/dL 09/11/21 1736 Urine Blood 1+ H 09/11/21 1736 Urine Nitrite NEGATIVE 09/11/21 1736 Urine Bilirubin NEGATIVE 09/11/21 1736 Urine Urobilinogen 2.0 mg/dL H 09/11/21 1736 Urine Leukocyte Esterase (Auto) TRACE H 09/11/21 1736 Urine WBC (Auto) 11 /HPF H 09/11/21 1736 Urine RBC (Auto) 3 /HPF 09/11/21 1736 Urine Hyaline Casts (Auto) 0 /LPF 09/11/21 1736 Urine Bacteria (Auto) 1+ H 09/11/21 1736 Urine Squamous Epithelial Cells 3 /HPF 09/11/21 1736 Urine Mucus (Auto) MODERATE 09/11/21 1736 NAME: INGRID LIZARRAGA DATE OF : 1985 AGE: 35 SEX: F REPORT #: [id number] ROOM: [facility] TECHNOLOGIST: [facility] DOCTOR: SANTOS MCKEON Ordered for Date&Time: 09/11/21 182 cc: [~ rep ct ivnm] Service Date&Time: 09/11/21 185 EXAMINATION REQUESTED: Obs. Limited, LEANNA US REASON FOR PATIENT VISIT: BLEEDING REASON FOR EXAM/COMMENT: bleeding , evaluate placenta for abruption INDICATION: bleeding , evaluate placenta for abruption. COMPARISON: None. TECHNIQUE: Transabdominal limited OB ultrasound FINDINGS: Multiple ultrasonographic images of the gravid uterus shows a single living intrauterine gestation in the breech presentation. Doppler interrogation of the heart shows a heart rate of 136 beats per minute. The placenta is fundal posterior and not low-lying. The cervix measures 4.1 cm in length and is closed. The subjective amniotic fluid volume is within normal limits. The calculated amniotic fluid index is 11.6 with an expected range of 8.7-24.0. Doppler interrogation of the umbilical artery shows an A\B ratio of 2.92. This is within the normal range. IMPRESSION: Limited OB ultrasound as described above. <Electronically signed by Erwin Mcgrath > 09/11/21 1906 SANTOS LAWSON CNM Sep 11, 2021 19:11
== END 2021-09-11 19:28 | disposition home or self-care (01) ==
LOC: M LDO 16:53
PROVIDERS: ATTEND Advanced Practice Midwife
DX: O26.893 Other specified pregnancy related conditions, third trimester (principal); O34.22 Maternal care for cesarean scar defect (isthmocele); O99.323 Drug use complicating pregnancy, third trimester; Z79.891 Long term (current) use of opiate analgesic; Z3A.31 31 weeks gestation of pregnancy

== ENCOUNTER → 2021-10-10 | Outpatient (REF) | payer OTHER, MEDICAID | LOC: M LAB REF 16:51 | PROVIDERS: ATTEND Advanced Practice Midwife | DX: Z34.83 Encounter for supervision of other normal pregnancy, third trimester (principal) ==

== ENCOUNTER → 2021-10-12 | Outpatient (CLI) | payer OTHER ==
[2021-10-12 11:43] LABS: BASO % 0.3 % (0.0-1.0); EOS # 0.1 10^3/uL (0.0-0.5); EOS % 1.3 % (0.0-3.0); HEMATOCRIT 36.5 % (36.0-47.0); HEMOGLOBIN 12.2 g/dl (12.0-15.5); LYMPH # 2.1 10^3/uL (1.5-5.0); MEAN CORPUSCULAR HEMOGLOBIN 31.3 pg (27.0-33.0); MEAN CORPUSCULAR HGB CONC 33.4 g/dl (32.0-36.5); MEAN CORPUSCULAR VOLUME 93.6 fl (80.0-96.0); MONO # 0.6 10^3/uL (0.0-0.8); MONO % 6.1 % (2.0-8.0); NEUTROPHILS # 6.2 10^3/uL (1.5-8.5); NEUTROPHILS % 68.7 % (36.0-66.0); PLATELET COUNT, AUTOMATED 209 10^3/uL (150-450)
[2021-10-12 12:22] LABS: ALT/SGPT 24 U/L (12-78); BILIRUBIN,TOTAL 0.3 MG/DL (0.2-1.0); CREATININE FOR GFR 0.51 MG/DL (0.55-1.30); GLOMERULAR FILTRATION RATE > 60.0 (>60); LDH LACTATE DEHYDROGENASE 166 U/L (84-246); URIC ACID 4.3 MG/DL (2.6-6.0)
[2021-10-12 13:11] LABS: CREATININE, URINE 85.4 MG/DL; URINE TOTAL PROTEIN 14.6 MG/DL (0-12)
== END ==
LOC: M LAB 11:08
PROVIDERS: ATTEND Advanced Practice Midwife
DX: Z34.83 Encounter for supervision of other normal pregnancy, third trimester (principal); Z36.89 Encounter for other specified antenatal screening

== ENCOUNTER → 2021-11-03 | Outpatient (CLI) | payer OTHER ==
[~2021-11-03] MED LIST changes: +PRENTAB53 PO
== END ==
LOC: M LABSMTC 09:17
PROVIDERS: ATTEND Anesthesiology
DX: Z01.818 Encounter for other preprocedural examination (principal); Z11.52 Encounter for screening for COVID-19